=== PATIENT | female | born 1980 | race African-American/Black ===

== ENCOUNTER 2016-06-05 12:06 | Observation (INO) | payer OTHER ==
[~2016-06-05] VITALS: Ht 160 cm; Wt 112.9 kg
[2016-06-05] MEDS ORDERED: PREN-155 PO (12:13)
[2016-06-05 12:53] VITALS: BP 130/65
[2016-06-05] MEDS ORDERED: IBUP-2070 PO (12:59)
[2016-06-05] MEDS ORDERED: FERR-89 PO (12:59)
[2016-06-05] MEDS ORDERED: DSS100 PO (12:59)
[2016-06-05] MEDS ORDERED: NIFEdipine 10 MG CAPSULE PO ONE (13:30)
== END 2016-06-05 14:20 | disposition home or self-care (01) ==
LOC: EMS 12:07 → 4S 12:20 → INTOOBSV 12:20
PROVIDERS: ADMIT Obstetrics & Gynecology Gynecology; ATTEND Obstetrics & Gynecology Gynecology
DX: O46.93 Antepartum hemorrhage, unspecified, third trimester (principal); O26.893 Other specified pregnancy related conditions, third trimester; R10.9 Unspecified abdominal pain; O99.013 Anemia complicating pregnancy, third trimester; Z3A.36 36 weeks gestation of pregnancy
CPT/HCPCS: 59025; 99285; G0378

== ENCOUNTER 2017-10-03 10:52 | Emergency (ER) | payer OTHER ==
[~2017-10-03] VITALS: Ht 170.2 cm; Wt 110.9 kg
[~2017-10-03 10:52] MED LIST: DSS100 PO; FERR-89 PO; IBUP-2070 PO; PREN-155 PO
[2017-10-03 13:03] VITALS: BP 129/88
== END 2017-10-03 14:41 | disposition home or self-care (01) ==
LOC: EMS 10:52
DX: S92.331A Displaced fracture of third metatarsal bone, right foot, initial encounter for closed fracture (principal); F17.210 Nicotine dependence, cigarettes, uncomplicated; Z88.6 Allergy status to analgesic agent; Z91.040 Latex allergy status; X58.XXXA Exposure to other specified factors, initial encounter; Y93.01 Activity, walking, marching and hiking; Y92.89 Other specified places as the place of occurrence of the external cause; Y99.8 Other external cause status
CPT/HCPCS: 99284; 99406

== ENCOUNTER 2017-10-11 10:48 | Emergency (ER) | payer OTHER ==
[~2017-10-11] VITALS: Ht 170.2 cm; Wt 110.9 kg
[2017-10-11] MEDS ORDERED: LORazepam 1 MG TABLET PO ONE (12:15)
[2017-10-11] MEDS ORDERED: LIDOCAINE HCL 1% 20 ML VIAL INJ ONE (12:15)
[2017-10-11] MEDS ORDERED: POVIDONE-IODINE 10% 15 ML SOLUTION UD TP ONE (12:15)
[2017-10-11] MEDS ORDERED: BACITRACIN 0.9 GM PACKET OINTMENT TP ONE (13:30)
[2017-10-11 13:37] VITALS: BP 132/83
== END 2017-10-11 13:52 | disposition home or self-care (01) ==
LOC: EMS 10:53
DX: S51.811A Laceration without foreign body of right forearm, initial encounter (principal); F17.210 Nicotine dependence, cigarettes, uncomplicated; Z88.6 Allergy status to analgesic agent; Z91.040 Latex allergy status; W25.XXXA Contact with sharp glass, initial encounter; Y93.89 Activity, other specified; Y92.89 Other specified places as the place of occurrence of the external cause; Y99.8 Other external cause status
CPT/HCPCS: 12034; 99284; J3490